=== PATIENT | female | born 1995 | race Caucasian/White ===

== ENCOUNTER 2016-05-10 06:00 | Emergency (ER) | payer MEDICAID ==
[~2016-05-10] VITALS: Ht 152.4 cm; Wt 52.0 kg
[~2016-05-10 06:00] MED LIST: BACT800T5 PO
[2016-05-10 06:02] VITALS: BP 106/58; PULSE 60; RESP 14; TEMP 97.7; O2SAT 100
[2016-05-10] MEDS ORDERED: LEVO500T3 PO (06:27)
[2016-05-10] MEDS ORDERED: PRED20 PO (07:09)
[2016-05-10] MEDS ORDERED: ALBU6.7H INH (07:10)
[2016-05-10] MEDS ORDERED: AZIT250T3 PO (07:10)
[2016-05-10] MEDS ORDERED: OCEA0.653 EACH NARE (07:10)
--- NOTE | 2016-05-10 07:10 | PD ---
HPI Chief Complaint: Cold / Flu Symptoms Time Seen by Provider: 06:46 Travel History International Travel<30 days: No Contact w/Intl Traveler<30days: No Traveled to known affect area: No History of Present Illness HPI The patient Is 20 and has had sore throat cough otalgia dizziness headache for about 4 weeks intermittently. She has tried various antibiotics most recently Levaquin. It seems as though nothing is helping. She has used an inhaler and a saline nasal spray without much improvement. She reports antibiotics and to cause her to vomit. She denies past medical history. She takes no medication. She has no drug allergies. She reports a history of tonsillectomy. She smokes tobacco. She denies drug abuse. 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 Prednisone 20 Mg Tab 40 Mg PO DAILY 4 Days Take 40 mg (2 tablets) daily for 5 days Review of Systems Except as stated in HPI: all other systems reviewed are Neg General / Constitutional: No: Fever HENT: Positive: Sore Throat Physical Exam Narrative GENERAL: Well-nourished well-developed 20-year-old female no acute distress SKIN: Warm and dry. HEAD: Atraumatic. Normocephalic. EYES: Pupils equal and round. No scleral icterus. No injection or drainage. ENT: No nasal bleeding or discharge. Mucous membranes pink and moist. NECK: Trachea midline. No JVD. CARDIOVASCULAR: Regular rate and rhythm. RESPIRATORY: No accessory muscle use. Clear to auscultation. Breath sounds equal bilaterally. GASTROINTESTINAL: Abdomen soft, non-tender, nondistended. Hepatic and splenic margins not palpable. MUSCULOSKELETAL: Extremities without clubbing, cyanosis, or edema. No obvious deformities. NEUROLOGICAL: Awake and alert. No obvious cranial nerve deficits. Motor grossly within normal limits. Five out of 5 muscle strength in the arms and legs. Normal speech. PSYCHIATRIC: Appropriate mood and affect; insight and judgment normal. Data Data Last Documented VS Vital Signs Date Time Temp Pulse Resp B/P Pulse Ox O2 Delivery O2 Flow Rate FiO2 05/10/16 07:32 96 05/10/16 06:24 18 Room Air 05/10/16 06:02 97.7 60 106/58 MDM Medical Decision Making Medical Screen Exam Complete: Yes Emergency Medical Condition: Yes Differential Diagnosis Pharyngitis, pneumonia, bronchitis, otitis media, postnasal drip Narrative Course Scripts as below. Patient ready for discharge. Diagnosis Primary Impression: Cough Additional Impression: Pharyngitis Qualified Code: J02.9 - Pharyngitis, unspecified etiology Referrals: Primary Care Physician 2 days Additional Instructions: You have a choice when it comes to health care, and we are glad that you chose [facility]. Hopefully, we have met your expectations on today's visit. You are welcome to return to [facility] at any time, as we are committed to meeting the health care needs of our community. Med/Other Pt SpecificInfo: Prescription(s) given Scripts Saline Nasal ([place] Nasal [place])0.65% Spray2 [place] EACH NARE DIRECTED PRN ( NASAL CONGESTION) #1 BOTTLE Ref 0 Prov:Yasmani Hernandez MD 05/10/16 Albuterol 6.7 GM Inh (Proventil Hfa 6.7 GM Inh)90 Mcg/Act Aer2 Puff INH Q6H PRN (SHORTNESS OF BREATH) #1 INHALER Ref 0 Prov:Yasmani Hernandez MD 05/10/16 Azithromycin 250 Mg [id number] Mg PO DIRECTED #6 TAB Ref 0 Take 2 tabs (500 mg) on day 1 then 1 tab daily x 4 days. Prov:Yasmani Hernandez MD 05/10/16 Prednisone 20 Mg Tab40 Mg PO DAILY 4 Days Ref 0 Take 40 mg (2 tablets) daily for 5 days Prov:Yasmani Hernandez MD 05/10/16 Disposition: 01 DISCHARGE HOME Condition: Stable Yasmani Hernandez MD May 10, 2016 07:10
== END 2016-05-10 07:33 | disposition home or self-care (01) ==
LOC: NEPC 06:00
DX: R05 Cough (principal); J02.9 Acute pharyngitis, unspecified; R51 Headache; R42 Dizziness and giddiness; F17.210 Nicotine dependence, cigarettes, uncomplicated
CPT/HCPCS: 99283